=== PATIENT | male | born 1960 | race African-American/Black ===

== ENCOUNTER 2025-03-02 15:39 | Emergency (ER) | payer MEDICAID, OTHER ==
[~2025-03-02] VITALS: Ht 167.6 cm; Wt 74.8 kg
[2025-03-02] MEDS ORDERED: KETOROLAC TROMETHAMINE INJ 30 MG/ML VIAL ONE (16:44)
[2025-03-02] MEDS: KETOROLAC TROMETHAMINE INJ 30 MG/ML VIAL IM ONE (16:52)
[2025-03-02] MEDS ORDERED: GABA-532 PO (17:06)
[2025-03-02] MEDS ORDERED: IBUP-1953 PO (17:06)
[2025-03-02 17:29] VITALS: BP 141/74; TEMP 98.2; O2SAT 98
== END 2025-03-02 17:30 | disposition home or self-care (01) ==
LOC: ER 16:58
DX: M54.50 Low back pain, unspecified (principal); I10 Essential (primary) hypertension
CPT/HCPCS: 99283; 96372; J1885